=== PATIENT | female | born 1980 | race Caucasian/White ===

== ENCOUNTER 2024-12-10 23:27 | Emergency (ER) | payer MEDICARE, MEDICAID ==
[~2024-12-10] VITALS: Ht 165.1 cm; Wt 78.0 kg
--- NOTE | 2024-12-11 00:46 | Physician Documentation ---
History of Present Illness Chief Complaint: Abdominal Pain Stated Complaint: MENSTRUAL CRAMPS HPI This is a 44-year-old female who presents with abnormal vaginal bleeding that h as not in line with typical menstrual cycle and suprapubic abdominal pain described as menstrual cramps though more painful than normal menstrual cramps. Patient reports that she has had abnormal bleeding with a menstrual cycle and more painful menstrual cramps for the last several months though today the pain is more intolerable than normal and she is having much heavier bleeding than normal which includes clots. Patient reports no fevers or chills. History as above. Patient states that she has had previous by tubal ligation. States this feels like menstrual cramps but severe. Symptoms are bilateral. Patient is still has her ovaries appendix and gallbladder. She has taken nothing for the pain because she has previously taken ibuprofen and Tylenol wi thout effect. Medication Reconciliation Allergies: Coded Allergies: Iodinated Contrast Media (Verified Allergy, Unknown, 12/10/24) Ok to take with Benadryl pre medication morphine (Verified Allergy, Unknown, 12/10/24) sulfamethoxazole (Verified Allergy, Unknown, 12/10/24) trimethoprim (Verified Allergy, Unknown, 12/10/24) Review of Systems ROS As stated above in the HPI, otherwise all systems are reviewed and negative. Physical Exam Vital Signs: Temperature: 97.6, Source: Temporal, Heart Rate: 112, Respiratory Rate: 15, BP: 129/98, Pulse Oximetry: 97, Weight: 78.000 Physical Exam General: Patient is awake, alert, oriented x4 in no acute distress Head: Normocephalic and atraumatic. Eyes: Conjunctival normal. EOMI. PERRL. ENT: Mucous membranes moist. Neck: Supple, trachea is midline. Chest: Clear to auscultation bilaterally without rales, rhonchi, or wheezes. There is no accessory muscle use or retractions. Cardiac: RRR without murmurs, gallops, or rubs. Abd: Soft, nondistended, mild diffuse tenderness without peritonitis. No adnexal tenderness. UA negative McBurney's and Yin's Progress Results/Orders Results/Orders Orders - FITZ HUITRON CMP (12/11/24 00:35) Cbc/Diff (12/11/24 00:35) Urinalysis, Cult If Indicated (12/11/24 00:35) Hcg Serum Ql (12/11/24 00:35) Completed Orders - FITZ HUITRON Ibuprofen Tablet (Motrin Tablet) (12/11/24 00:40) Vital Signs 12/10/24 23:49 Temp 97.6 Pulse 112 Resp 15 B/P (MAP) 129/98 Pulse Ox 97 Medical Decision Making Additional information obtaine: N/A Findings MSE performed in triage and patient returned to ED lobby by nursing staff to await available ED room. Patient is hemodynamically stable, tachycardia attribut ed to pain. Differential Dx:Considerations: N/A Additional Comments I took over care of this patient from previous ED physician. 44-year-old female presenting with menstrual cramps. Lab workup was unremarkable. I went to reassess the patient but she had eloped from the emergency department without receiving her final disposition. Departure Disposition: 07 LEFT AWOL/ELOPED Impression: Primary Impression: Menstrual cramps Condition: Stable Referrals: NO PRIMARY CARE PROVIDER (PCP) Signature Scribe Signature: 1 Attestation: The note accurately reflects work and decisions made by me.Chris Quevedo MD 12/15/24 23:01 1 FITZ HUITRON Dec 11, 2024 00:46 CHRIS QUEVEDO MD Dec 11, 2024 02:43 GRICELDA PARR MD Dec 11, 2024 08:18
[2024-12-11 02:04] LABS: MEAN PLATELET VOLUME 8.0 FL (7.4-10.4); RED CELL DISTRIBUTION WIDTH 17.0 % (11.5-14.5)
[2024-12-11] MEDS: ibuprofen tablet 400 MG TABLET PO ONE (02:21)
[2024-12-11 02:40] LABS: HCG SERUM QL NEGATIVE
[2024-12-11 02:49] LABS: CREATININE 0.64 MG/DL (0.40-0.90); TOTAL CARBON DIOXIDE 29.3 MMOL/L (24-32); eCRCL 102 ML/MIN; eGFR > 90 ML/MIN
[2024-12-11] MEDS: dicyclomine 10mg/ml 2ml VIAL IM ONE (03:02)
[2024-12-11 04:22] LABS: LEUKOCYTE ESTERASE ,URINE NEGATIVE (Neg); NITRITES, URINE NEGATIVE (Neg); OCCULT BLOOD,URINE SMALL (Neg)
[2024-12-11 04:38] LABS: UA COLLECTION TYPE CLN CATCH MIDSTREAM
[2024-12-11 04:41] LABS: SQUAMOUS EPITHELIAL CELL,UR FEW /LPF (FEW)
[2024-12-11] MEDS: HYDROcodone/acetaminophen 10/325mg tab PO ONE (05:05)
[2024-12-11] MEDS: ondansetron 4mg rapidly disintigrating tab PO ONE (05:05)
[2024-12-11 05:33] VITALS: TEMP 97.6
[2024-12-11 06:12] VITALS: BP 94/52; PULSE 56; RESP 20; O2SAT 97
== END 2024-12-11 07:42 | disposition left against medical advice (07) ==
LOC: ER 23:28
DX: N94.6 Dysmenorrhea, unspecified (principal); Z98.51 Tubal ligation status; Z91.041 Radiographic dye allergy status; Z88.5 Allergy status to narcotic agent; Z88.2 Allergy status to sulfonamides; Z88.8 Allergy status to other drugs, medicaments and biological substances
CPT/HCPCS: 36415; 80053; 81001; 84145; 84703; 85025; 96372; 99285; J0500